=== PATIENT | female | born 1940 | race Caucasian/White ===

== ENCOUNTER 2020-07-09 14:39 | Emergency (ER) | payer MEDICARE, BC, SELFPAY ==
[2020-07-09] VITALS (20 sets, daily range): BP systolic 144–161; BP diastolic 63–81; PULSE 51–107; RESP 14–24; TEMP 36.6–37; O2SAT 96–98
--- NOTE | 2020-07-09 14:30 | RT.EKG_ITS ---
APPROVED REPORT Exam: Resting ECG Reason for Exam: chest pain Patient Location: E HR:87 bpm ECG Measurements Heart Rate 87 AXIS TN 240 P 78 QRSd 102 QRS 40 QT 354 T 250 QTc 426 Conclusion Sinus rhythm...normal P axis, V-rate 60- 99 Prolonged TN interval...TN >220, V-rate 50- 90 Nonspecific T abnormalities, lateral leads...T <-0.10mV, I aVL V5 V6 I have reviewed and interpreted ECG and agree with software generated interpretation.
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
[2020-07-09 15:15] LABS: Abs Immature Grans 0.06 10^3/uL (0.0-0.06); Absolute Basophil Count 0.03 10^3/uL (0.0-0.2); Absolute Lymphocyte Count 2.15 10^3/uL (1.2-3.4); Absolute Monocyte Count 0.41 10^3/uL (0.1-0.8); Absolute Neutrophil Count 6.44 10^3/uL (1.2-6.7); Basophils % 0.3; Eosinophils % 1.1; HCT 40.1 % (36.0-46.0); HGB 13.4 g/dL (11.2-15.7); Immature Grans % 0.7; Lymphocytes % 23.4; MCH 29.8 pg (27.0-33.0); MCHC 33.4 % (32.0-36.0); MCV 89.3 fL (80-95); Monocytes % 4.5; Nucleated RBC 0 %; Platelet Count 209 10^3/uL (130-400); RBC 4.49 10^6/uL (3.93-5.22); RDW 12.6 % (11.7-14.6); RDW-SD 41.3 fL; WBC 9.19 10^3/uL (4.4-10.8)
[2020-07-09 15:30] LABS: ALT 41 U/L (14-59); AST 14 U/L (15-37); Albumin 3.7 g/dL (3.4-5.0); Alkaline Phosphatase 72 U/L (46-116); Anion Gap 9.1 mmol/L (3-11); BUN 23 mg/dL (7-18); Bilirubin, Total 0.4 mg/dL (0.2-1.0); CO2 27.9 mmol/L (21.0-32.0); CREATININE 0.9 mg/dL (0.55-1.02); Calcium 9.7 mg/dL (8.5-10.1); Chloride 104 mmol/L (98-107); Glucose 190 mg/dL (74-106); Magnesium 2.1 mg/dL (1.8-2.4); Potassium 3.2 mmol/L (3.5-5.1); Sodium 141 mmol/L (136-145); Total Protein 7.3 g/dL (6.4-8.2)
[2020-07-09 15:31] LABS: Troponin I < 0.05 ng/mL (<0.06)
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
--- NOTE | 2020-07-09 16:45 | RT.EKG_ITS ---
APPROVED REPORT Exam: Resting ECG Reason for Exam: chest pain Patient Location: E HR:101 bpm ECG Measurements Heart Rate 101 AXIS OH 210 P 79 QRSd 96 QRS 39 QT 381 T 86 QTc 495 Conclusion Sinus tachycardia...rate> 99 Supraventricular bigeminy...bigeminy string>4 w/ SV complexes Borderline prolonged OH interval...OH >207, V-rate 91-120
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
[2020-07-09 18:27] LABS: Troponin I < 0.05 ng/mL (<0.06)
== END 2020-07-09 19:00 | disposition home or self-care (01) ==
PROVIDERS: Physician Assistant; Emergency Provider Physician Assistant
DX: S29.8XXA Other specified injuries of thorax, initial encounter (principal); E87.6 Hypokalemia; G93.0 Cerebral cysts; R91.1 Solitary pulmonary nodule; V89.2XXA Person injured in unspecified motor-vehicle accident, traffic, initial encounter
CPT/HCPCS: 36415; 74177; 80053; 86850; 86900; 86901; 93005; 99285; 70450; 71260; 72125; 83735; 84484; 85025; 93010; 99281